=== PATIENT | female | born 1995 | race Hispanic/Latino ===

== ENCOUNTER 2019-03-31 08:42 | Emergency (ER) | payer OTHER ==
[2019-03-31 08:53] VITALS: BP 129/91
[2019-03-31] MEDS ORDERED: ULTRAM PO ONE (09:52)
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
== END 2019-03-31 11:30 | disposition home or self-care (01) ==
LOC: ED 08:42
DX: S16.1XXA Strain of muscle, fascia and tendon at neck level, initial encounter (principal); S39.012A Strain of muscle, fascia and tendon of lower back, initial encounter; V89.2XXA Person injured in unspecified motor-vehicle accident, traffic, initial encounter; Y93.89 Activity, other specified; Y92.488 Other paved roadways as the place of occurrence of the external cause; Y99.8 Other external cause status
CPT/HCPCS: 72040; 72100; 99283